=== PATIENT | female | born 1980 | race Two or more races ===

== ENCOUNTER 2017-06-22 16:06 | Emergency (ER) ==
[~2017-06-22] VITALS: Ht 172.7 cm; Wt 63.5 kg
[~2017-06-22 16:06] MED LIST: TRAMADOL HCL50 M1 PO
== END 2017-06-22 17:59 | disposition home or self-care (01) ==
LOC: CED 16:06
DX: Z53.21 Procedure and treatment not carried out due to patient leaving prior to being seen by health care provider (principal)